=== PATIENT | female | born 1965 | race Caucasian/White ===

== ENCOUNTER 2018-12-02 20:43 | Emergency (ER) | payer SELFPAY ==
[2018-12-02 21:05] VITALS: BP 142/73
--- NOTE | 2018-12-02 21:21 | ER Document Report ---
ED Medical Screen (RME) - General Chief Complaint: Chest Pain Stated Complaint: CHEST PAIN Time Seen by Provider: 12/02/18 21:17 Primary Care Provider: CHI BURNETTE PA-C [Primary Care Provider] - Follow up as needed Mode of Arrival: Ambulatory Information source: Patient Notes: 53-year-old female presents to ED for complaint of left chest pain times 4 days sharp. She states she thought may be because she was burning and lost weight that can go in the thing to get that she was going to be okay so she just ignored it. She states the pain has been continuing is very sore. She does not remember any injury she states sometimes when she touches it it is more painful. She states she has a history of bronchitis asthma and hyperparathyroid. 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 She states there is no reason for her to have chest wall pain. Patient is alert oriented respirations regular and unlabored speaking in full sentences. There is no tenderness to palpation to the chest wall at this time. I have greeted and performed a rapid initial assessment of this patient. A comprehensive ED assessment and evaluation of the patient, analysis of test results and completion of medical decision making process will be conducted by an additional ED providers. Past Medical History - Social History Frequency of alcohol use: Rare Drug Abuse: None - Past Medical History Cardiac Medical History: Reports: Hx Atrial Fibrillation Pulmonary Medical History: Reports: Hx Bronchitis Renal/ Medical History: Denies: Hx Peritoneal Dialysis Past Surgical History: Reports: Hx Cardiac Surgery, Hx Tonsillectomy Physical Exam - Vital signs Vitals: Temp Pulse Resp BP Pulse Ox 97.9 F 76 14 142/73 H 98 12/02/18 21:03 12/02/18 21:03 12/02/18 21:03 12/02/18 21:03 12/02/18 21:03 Course - Vital Signs Vital signs: Temp Pulse Resp BP Pulse Ox 97.9 F 76 14 142/73 H 98 12/02/18 21:03 12/02/18 21:03 12/02/18 21:03 12/02/18 21:03 12/02/18 21:03 Doctor's Discharge - Discharge Referrals: CHI BURNETTE PA-C [Primary Care Provider] - Follow up as needed
[2018-12-02 21:53] LABS: ABSOLUTE BASOPHILS # (AUTO) 0.1 10^3/uL (0.0-0.2); ABSOLUTE EOSINOPHILS # (AUTO) 0.1 10^3/uL (0.0-0.6); ABSOLUTE LYMPHOCYTES (AUTO) 3.8 10^3/uL (0.5-4.7); ABSOLUTE MONOCYTES (AUTO) 0.4 10^3/uL (0.1-1.4); ABSOLUTE NEUT (AUTO) 2.8 10^3/uL (1.7-8.2); BASOPHILS % (AUTO) 0.8 % (0-2); EOSINOPHILS % (AUTO) 1.3 % (0-6); HEMOGLOBIN 13.5 g/dL (12.0-15.5); LYMPHOCYTES % (AUTO) 53.4 % (13-45); MEAN CORPUSCULAR HEMOGLOBIN 31.6 pg (27.0-33.4); MEAN CORPUSCULAR HGB CONC 33.9 g/dL (32.0-36.0); MEAN CORPUSCULAR VOLUME 93 fl (80-97); MONOCYTES % (AUTO) 5.1 % (3-13); PLATELET COUNT 230 10^3/uL (150-450); RED BLOOD COUNT 4.28 10^6/uL (3.72-5.28); SEGMENTED NEUTROPHILS % (AUTO) 39.4 % (42-78); TOTAL CELLS COUNTED % (AUTO) 100 %; WHITE BLOOD COUNT 7.1 10^3/uL (4.0-10.5)
[2018-12-02 22:03] LABS: ALANINE AMINOTRANSFERASE 21 U/L (9-52); ALBUMIN 4.3 g/dL (3.5-5.0); ALKALINE PHOSPHATASE 59 U/L (38-126); ANION GAP 5 (5-19); ASPARTATE AMINO TRANSFERASE 18 U/L (14-36); BILIRUBIN,DIRECT 0.1 mg/dL (0.0-0.4); BILIRUBIN,TOTAL 0.3 mg/dL (0.2-1.3); BLOOD UREA NITROGEN 22 mg/dL (7-20); CALCIUM 11.3 mg/dL (8.4-10.2); CARBON DIOXIDE 31 mmol/L (22-30); CHLORIDE 104 mmol/L (98-107); CREATINE KINASE 107 U/L (30-135); GLUCOSE 98 mg/dL (75-110); POTASSIUM 4.1 mmol/L (3.6-5.0); SODIUM 139.9 mmol/L (137-145); TOTAL PROTEIN 6.7 g/dL (6.3-8.2)
[2018-12-02 22:15] LABS: CREATINE KINASE MB 1.71 ng/mL (<4.55)
[2018-12-02 22:16] LABS: TROPONIN I < 0.012 ng/mL
--- NOTE | 2018-12-02 22:18 | RADIOLOGY REPORT (SQ) ---
XR CHEST 2 VIEWS HISTORY: Left chest pain COMPARISON: None. FINDINGS: The heart size is normal. The lungs are clear. No pleural effusions or pneumothorax is seen. No acute bony findings. IMPRESSION: No evidence of acute cardiopulmonary disease.
--- NOTE | 2018-12-03 08:50 | EKG REPORT ---
SEVERITY:- BORDERLINE ECG - SINUS RHYTHM PROMINENT P WAVES, NONDIAGNOSTIC : Confirmed by: Fermin Herron MD 03-Dec-2018 08:49:07
== END 2018-12-02 23:00 | disposition left against medical advice (07) ==
LOC: ER 20:43
DX: R07.9 Chest pain, unspecified (principal); I48.91 Unspecified atrial fibrillation
CPT/HCPCS: 36415; 71046; 80053; 82550; 82553; 84484; 84703; 85025; 93005; 93010; 99281

== ENCOUNTER 2018-12-03 12:35 | Emergency (ER) | payer SELFPAY ==
[2018-12-03 14:23] LABS: ANION GAP 7 (5-19); BLOOD UREA NITROGEN 16 mg/dL (7-20); CALCIUM 10.8 mg/dL (8.4-10.2); CARBON DIOXIDE 29 mmol/L (22-30); CHLORIDE 105 mmol/L (98-107); GLUCOSE 95 mg/dL (75-110); POTASSIUM 4.2 mmol/L (3.6-5.0); SODIUM 141.2 mmol/L (137-145)
--- NOTE | 2018-12-03 14:23 | ER Document Report ---
ED General - General Chief Complaint: Chest Pain Stated Complaint: CHEST PAIN Time Seen by Provider: 12/03/18 13:48 Primary Care Provider: CHI BURNETTE PA-C [NO LOCAL MD] - Follow up as needed TRAVEL OUTSIDE OF THE [place] IN LAST 30 DAYS: No - HPI Patient complains to provider of: Left-sided chest pain Notes: Patient coming in for evaluation of left-sided chest pain ongoing now for 5 days. Patient was seen night prior for left-sided stabbing chest pain patient had blood work performed however did not stay around for her laboratory findings. Returns today with his results. Patient states pain does continue. Patient chest x-ray lab studies were reviewed and these are all negative. Patient denies any nausea or vomiting denies any trauma denies any recent travel however did go to [place] in July. Patient states she has lost a lot of weight over the last year does have a primary care physician however has not followed up with them in quite some time due to loss of insurance. Patient does smoke denies any sick contacts resting comfortably upon my evaluation patient does state touching and breathing reproduces the patient's pain - Related Data Allergies/Adverse Reactions: morphine Allergy (Verified 12/03/18 12:36) prednisone Allergy (Verified 12/03/18 12:36) Sulfa (Sulfonamide Antibiotics) Allergy (Verified 12/03/18 12:36) Past Medical History - Social History Smoking Status: Current Every Day Smoker Family History: Reviewed & Not Pertinent Patient has suicidal ideation: No Patient has homicidal ideation: No - Past Medical History Cardiac Medical History: Reports: Hx Atrial Fibrillation Pulmonary Medical History: Reports: Hx Bronchitis Renal/ Medical History: Denies: Hx Peritoneal Dialysis Past Surgical History: Reports: Hx Cardiac Surgery, Hx Tonsillectomy Review of Systems - Review of Systems Constitutional: No symptoms reported EENT: No symptoms reported Cardiovascular: Chest pain Respiratory: No symptoms reported Gastrointestinal: No symptoms reported Genitourinary: No symptoms reported Female Genitourinary: No symptoms reported Musculoskeletal: No symptoms reported Skin: No symptoms reported Hematologic/Lymphatic: No symptoms reported Neurological/Psychological: No symptoms reported -: Yes All other systems reviewed and negative Physical Exam - Vital signs Vitals: Temp Pulse Resp BP Pulse Ox 98.4 F 85 14 140/71 H 96 12/03/18 12:38 12/03/18 12:38 12/03/18 12:38 12/03/18 12:38 12/03/18 12:38 Interpretation: Normal - General General appearance: Appears well, Alert - HEENT Head: Normocephalic, Atraumatic Eyes: Normal Pupils: PERRL - Respiratory Respiratory status: No respiratory distress Chest status: Tender Breath sounds: Normal Chest palpation: Normal - Cardiovascular Rhythm: Regular Heart sounds: Normal auscultation Murmur: No - Abdominal Inspection: Normal Distension: No distension Bowel sounds: Normal Tenderness: Nontender Organomegaly: No organomegaly - Back Back: Normal, Nontender - Extremities General upper extremity: Normal inspection, Nontender, Normal color, Normal ROM, Normal temperature General lower extremity: Normal inspection, Nontender, Normal color, Normal ROM, Normal temperature, Normal weight bearing. No: Paul's sign - Neurological Neuro grossly intact: Yes Cognition: Normal Orientation: AAOx4 Jared Coma Scale Eye Opening: Spontaneous Jared Coma Scale Verbal: Oriented Welling Coma Scale Motor: Obeys Commands Welling Coma Scale Total: 15 Speech: Normal Motor strength normal: LUE, RUE, LLE, RLE Sensory: Normal - Psychological Associated symptoms: Normal affect, Normal mood - Skin Skin Temperature: Warm Skin Moisture: Dry Skin Color: Normal Course - Re-evaluation Re-evalutation: 12/03/18 16:52 The patient has atypical chest pain as the patient's chest pain is not suggestive of pulmonary embolus, cardiac ischemia, aortic dissection, or other serious etiology. Given the extremely low risk of these diagnoses further testing and evaluation for these possibilities does not appear to be indicated at this time. The patient has been instructed to return if the symptoms worsen or change in any way. - Vital Signs Vital signs: Temp Pulse Resp BP Pulse Ox 98.3 F 61 16 122/78 100 12/03/18 15:00 12/03/18 15:00 12/03/18 15:00 12/03/18 15:00 12/03/18 15:00 - Laboratory Result Diagrams: 12/03/18 13:37 Laboratory results interpreted by me: 12/03/18 13:37 Calcium 10.8 H Discharge - Discharge Clinical Impression: Chest wall pain Condition: Good Disposition: HOME, SELF-CARE Instructions: Anti-Inflammatory Medication ([facility]), Chest Wall Pain ([facility]) Additional Instructions: Your laboratory studies today do not show any signs of cardiac ischemia she has a normal EKG you had no signs of blood clots within your lungs do believe you have some your pain may be due to her chest wall inflammation will recommend to stop smoking take anti-inflammatory medications make sure you drink plenty of fluids to stay hydrated return to the ER symptoms worsen follow-up with your primary care physician. Prescriptions: Ibuprofen [Motrin 600 mg Tablet] 600 mg PO Q8HP PRN #21 tablet PRN Reason: Referrals: CHI BURNETTE PA-C [NO LOCAL MD] - Follow up as needed
[2018-12-03 15:01] VITALS: BP 122/78
--- NOTE | 2018-12-03 17:16 | EKG REPORT ---
SEVERITY:- NORMAL ECG - SINUS RHYTHM : Confirmed by: Fermin Herron MD 03-Dec-2018 17:14:43
== END 2018-12-03 15:02 | disposition home or self-care (01) ==
LOC: ER 12:35
DX: R07.89 Other chest pain (principal); R63.4 Abnormal weight loss; F17.200 Nicotine dependence, unspecified, uncomplicated; Z88.5 Allergy status to narcotic agent; Z88.8 Allergy status to other drugs, medicaments and biological substances; Z88.2 Allergy status to sulfonamides
CPT/HCPCS: 36415; 80048; 84484; 85379; 93005; 93010; 99283

== ENCOUNTER → 2020-04-02 | Outpatient (CLI) | payer BC ==
[2020-04-02 12:57] LABS: ALBUMIN 4.4 g/dL (3.5-5.0); CALCIUM 11.1 mg/dL (8.4-10.2)
[2020-04-02 13:12] LABS: FREE T4 (FREE THYROXINE) 0.99 ng/dL (0.78-2.19)
[2020-04-02 13:27] LABS: THYROID STIMULATING HORMONE 2.87 uIU/mL (0.47-4.68)
== END ==
LOC: OD 12:08
PROVIDERS: ATTEND Otolaryngology
DX: E21.0 Primary hyperparathyroidism (principal)
CPT/HCPCS: 36415; 82040; 82306; 82310; 83735; 83970; 84100; 84439; 84443